=== PATIENT | female | born 1935 | race Caucasian/White ===

== ENCOUNTER 2022-01-30 10:56 | Emergency (ER) | payer MEDICARE ==
[2022-01-30] VITALS (7 sets, daily range): BP systolic 107–141; BP diastolic 26–76
[~2022-01-30] VITALS: Ht 157.5 cm; Wt 72.1 kg
[2022-01-30] MEDS ORDERED: GABAPENTIN100 MG PO ×2 (11:24→11:27)
[2022-01-30] MEDS ORDERED: METOPROL TAR25 MG PO (11:24)
[2022-01-30] MEDS ORDERED: LANTUS SOL100 UNIT/M SC (11:25)
[2022-01-30] MEDS ORDERED: CALCIUM 600 +600 MG PO (11:26)
[2022-01-30] MEDS ORDERED: ROSUVASTATIN CA20 MG PO (11:27)
[2022-01-30] MEDS ORDERED: TRAZODONE50 MG PO (11:28)
[2022-01-30] MEDS ORDERED: MULTI VIT PO (11:28)
[2022-01-30 11:32] LABS: HEMATOCRIT 39.4 % (37.0-47.0); HEMOGLOBIN 12.7 g/dl (12.0-16.0); IMMATURE GRANULOCYTES 0.1 % (0.0-5.0); MEAN CELL VOLUME 94.5 fL CALC (80.0-100.0); MEAN CORPUSCULAR HGB 30.5 pG CALC (26.0-32.0); MEAN CORPUSCULAR HGB CONC 32.2 g/dL CAL (32.0-36.0); NEUT# 4.01 thou/uL (2.00-7.15); RED BLOOD COUNT 4.17 mill/uL (4.20-5.60); RED CELL DISTRI WIDTH 13.8 % (11.5-15.5)
[2022-01-30 11:43] LABS: BILIRUBIN, TOTAL 0.4 mg/dL (0.0-1.4); CREATININE 1.2 mg/dL (0.5-1.0); POTASSIUM 4.6 mmol/l (3.5-5.1); TOTAL PROTEIN 6.8 g/dL (6.3-8.2)
[2022-01-30 12:26] LABS: URINE BILIRUBIN - DIPSTICK NEGATIVE (NEGATIVE); URINE BLOOD DIPSTICK TRACE-LYSED (NEGATIVE); URINE COLOR YELLOW; URINE GLUCOSE - DIPSTICK NEGATIVE (NEGATIVE); URINE KETONE NEGATIVE (NEGATIVE); URINE LEUK ESTERASE TRACE (NEGATIVE); URINE PH 6.5 (4.5-8.0); URINE PROTEIN - DIPSTICK NEGATIVE (NEG-TRACE); URINE UROBILINOGEN - DIPSTICK 0.2 E.U./dL (0.2)
[2022-01-30 12:28] LABS: URINE NITRITE - DIPSTICK NEGATIVE (Negative)
[2022-01-30] MEDS ORDERED: TORADOL PO (13:10)
== END 2022-01-30 13:52 | disposition home or self-care (01) ==
LOC: ED 10:56
PROVIDERS: Family Medicine
DX: M54.9 Dorsalgia, unspecified (principal); I10 Essential (primary) hypertension; E11.9 Type 2 diabetes mellitus without complications; Z79.4 Long term (current) use of insulin